=== PATIENT | male | born 1995 | race Caucasian/White ===

== ENCOUNTER 2021-09-02 18:50 | Emergency (ER) | payer OTHER, MEDICAID, SELFPAY ==
[2021-09-02 19:00] VITALS: BP 125/74; PULSE 76; RESP 19; TEMP 36.9; O2SAT 99; BMI 33.2
--- NOTE | 2021-09-02 19:12 | HMH.EDUTC ---
[facility] [place] Disposition Clinical Impression: Bee sting reaction Qualifiers: Encounter type: initial encounter Injury intent: accidental or unintentional Qualified Code(s): T63.441A - Toxic effect of venom of bees, accidental (unintentional), initial encounter Disposition: Home, Self-Care Condition on Discharge: Good Instructions: Insect Bites and Stings, DI for Insect Allergy Additional Instructions: continue benadryl as directed on bottle follow up with pcp may need allergy testing if symptoms worsen or no improvement return or be seen in er Referrals: Horace Anderson PA [Primary Care Provider] - Time of Disposition: 19:35 Medical Decision Making - Devin Inquiry Pt receiving controlled substance: No Vital Signs: 09/02/21 19:00 09/02/21 19:20 Temperature 98.4 F 98.4 F Temperature Source Oral Pulse Rate 76 Pulse Rate [Right Brachial] 76 Respiratory Rate 19 19 Blood Pressure 125/74 Blood Pressure [Right Arm] 125/74 Blood Pressure Mean [Right Arm] 91 Blood Pressure Source [Right Arm] Automatic Cuff Blood Pressure Position [Right Arm] Sitting 02 Sat by Pulse Oximetry 99 Oxygen Delivery Method Room Air Orders (Tests/Meds): ED MEDICATIONS Discontinued Medications Generic Name Dose Route Start Last Admin Trade Name Freq PRN Reason Stop Dose Admin Dexamethasone Sodium Phosphate 8 mg 09/02/21 19:13 09/02/21 19:20 Dexamethasone 4mg/Ml 1ml Vial IM 09/02/21 19:14 8 mg ONCE ONE Administration Famotidine 20 mg 09/02/21 19:13 09/02/21 19:19 Famotidine 20mg Tablet PO 09/02/21 19:14 20 mg ONCE ONE Administration [facility] [place] HPI - General Chief complaint: Urgent Treatment Center Stated complaint: WASP STING r eYE aREA Time Seen by Provider: 09/02/21 19:12 Mode of Arrival: Ambulatory Source of Information: Patient Limitations: No Limitations Description of Symptoms (Recalled from Triage Doc. by RN): PATIENT C/O SWELLING AROUND EYES AFTER A BEE STUNG HIM ON THE FOREHEAD TODAY HEENT Symptoms (Recalled from RN notes): Yes Resp Symptoms (Recalled from RN notes): No Skin Symptoms (Recalled from RN notes): No MS Symptoms (Recalled from RN notes): No Functional Status (Recalled from RN notes): WNL - History of Present Illness Provider Complaint: 26 yr old male presnets for a honey bee sting to forehead at 530pm today, pt states his eyes were swollen shut and he felt his throat being hard to swallow but he took 2 benadryl prior to arrival and this has improved. pt states now only has swelling but can open both eyes. pt states no more throat issues that has gone away - Related Data Allergies Allergy/AdvReac Type Severity Reaction Status Date / Time amoxicillin [From AMOXIL] Allergy Unknown THROAT Verified 09/02/21 19:12 SWELLS codeine [CODEINE] Allergy Unknown THROAT Verified 09/02/21 19:12 SWELLS Sulfa (Sulfonamide Allergy Unknown I-HIVES Verified 09/02/21 19:12 Antibiotics) [SULFA (SULFONAMIDE ANTIBIOTICS)] Penicillins Allergy Verified 09/02/21 19:12 - Worker's Comp Is this a Worker's Comp case?: No [facility] History - Hepatitis A Screen Attestation statement:: This patient has been screened for Hepatitis A risk factors. I have reviewed the patient's past medical history: Yes ROS Obtained: Yes Systems reviewed as appropriate & no additional complaints - Constitutional Constitutional: Reports system reviewed and no additional complaints, except as docu, Denies fever(s) - Eyes Eyes: Reports system reviewed and no additional complaints, except as docu, Denies dry eyes - ENT Ears, Nose, Mouth, and Throat: Reports system reviewed and no additional complaints, except as docu, Denies sore throat - Cardiovascular Cardiovascular: Reports system reviewed and no additional complaints, except as docu, Denies chest pain at rest - Respiratory Respiratory: Reports system reviewed and no additional complaints, except as docu, Denies chest congestion - Dipti
[2021-09-02 19:20] VITALS: BP 125/74; PULSE 76; RESP 19; TEMP 36.9; O2SAT 99
== END 2021-09-02 19:37 | disposition home or self-care (01) ==
PROVIDERS: Emergency Provider Nurse Practitioner Family; PCP Physician Assistant Medical
DX: T63.441A Toxic effect of venom of bees, accidental (unintentional), initial encounter (principal); Z88.0 Allergy status to penicillin; Z88.1 Allergy status to other antibiotic agents; Z88.2 Allergy status to sulfonamides; Z88.3 Allergy status to other anti-infective agents; Z88.5 Allergy status to narcotic agent
CPT/HCPCS: 96372; 99213; G0463

== ENCOUNTER 2022-03-18 16:31 | Emergency (ER) | payer OTHER, MEDICAID, SELFPAY ==
[2022-03-18 17:14] VITALS: BP 144/94; PULSE 104; RESP 18; TEMP 36.5; O2SAT 99; BMI 34.0
[2022-03-18 17:20] LABS: UTC Strep Screen (Rapid) Positive (Negative)
[2022-03-18 17:21] LABS: UTC Influenza A Antigen Negative (Negative); UTC Influenza B Antigen Negative (Negative)
--- NOTE | 2022-03-18 17:37 | EXP.UTC ---
Discharge Plan Disposition Patient Disposition: Home, Self-Care Condition: Good Prescriptions Prescriptions: New azithromycin [Zithromax Z-Wilfred] 250 mg tablet See Rx Instructions .ROUTE .COMPLEX 5 Days Qty: 6 0RF Rx Instructions: For 250 mg dose pack: take 500 mg today (day 1), then 250 mg for 4 days (days 2-5) Referrals Follow up/Referrals: Horace Anderson PA [Primary Care Provider] - See instructions Activity Restrictions/Add. Instructions Additional Instructions/Restrictions: *Monitor Temp, Over the counter Motrin or Tylenol as directed/as needed Tylenol every 4 hours and Motrin every 6 hours (as long as your family doctor has told you that you can take it) for fever or pain. and straight to ER if unable to lower temp less than 101.0 after medication given *Warm salt water gargles may help to soothe the throat *Throat Lozenges? *Warm fluids like tea with honey may help to soothe the throat? *Sleep elevated *Humidifier/Vaporizer *If you did not take Penicillin shot or was unable to, start taking antibiotic immediately and make sure that you take it for the FULL length of time although you should start to feel better in 24-48 hours *change toothbrush and toothpaste 24-48 hours after starting to take antibiotics so you do not reinfect yourself Monitor Temp. Tylenol and/or Ibuprofen as needed. ER if fever is no less than 101 despite alternating Tylenol and Ibuprofen * Encourage fluids, water, Gatorade, powerade, pedialyte if /toddler/or child *Cold fluids, popsicles and ice cream may feel good on his throat Follow up IMMEDIATELY for new or worsening symptoms or no Noticeable improvement over the next 48-72 hours. 911 for difficulty breathing or swallowing Clinical Impressions Clinical Impression: Strep throat Stand Alone Forms Stand Alone Forms: Work/School Release Instructions Patient Instructions: Strep Throat, DI for Strep Throat Discharge ED [place] Cummins [facility] [place] General Stated complaint: earache, sore throat DAS Mode of Arrival: Ambulatory Source of Information: Patient Limitations: No Limitations Time Seen by Provider: 03/18/22 17:37 Description of Symptoms (Recalled from Triage Doc. by RN): pt comes in with c/o sore throat, ear pain, headaches, drainage. symptoms ongoing for 1 week. HEENT Symptoms (Recalled from RN notes): Yes Resp Symptoms (Recalled from RN notes): Yes Skin Symptoms (Recalled from RN notes): No MS Symptoms (Recalled from RN notes): No Functional Status (Recalled from RN notes): n/a History of Present Illness Provider Complaint: Patient states that he hasnt felt well for close to a week States that he has been having sore throat, headache, sinus drainage States today he was still not feeling any better so he came in to get checked Related Data Previous Rx's Medication Instructions Recorded azithromycin 250 mg tablet See Rx Instructions PO .COMPLEX 5 03/18/22 (Zithromax Z-Wilfred) days #6 tabs Allergies Allergy/AdvReac Type Severity Reaction Status Date / Time amoxicillin [From AMOXIL] Allergy Unknown THROAT Verified 03/18/22 17:16 SWELLS codeine [CODEINE] Allergy Unknown THROAT Verified 03/18/22 17:16 SWELLS Sulfa (Sulfonamide Allergy Unknown I-HIVES Verified 03/18/22 17:16 Antibiotics) [SULFA (SULFONAMIDE ANTIBIOTICS)] Penicillins Allergy Verified 03/18/22 17:16 Worker's Comp Is this a Worker's Comp case?: No [facility] Disclaimer: The information contained in this section may have been updated after the patient was seen, as this information can be updated by other users. Social History Smoking Status: Unknown if ever smoked alcohol intake: never current occupational status: employed Travel in the last 8 weeks: None ROS Obtained: Yes All systems reviewed & no additional complaints except as documented and Yes Systems reviewed as appropriate & no additional complaints except as doc
[2022-03-18 17:49] VITALS: BP 144/94; PULSE 104; RESP 18; TEMP 36.5
== END 2022-03-18 17:49 | disposition home or self-care (01) ==
PROVIDERS: Emergency Provider Nurse Practitioner; PCP Physician Assistant Medical
DX: J02.0 Streptococcal pharyngitis (principal)
CPT/HCPCS: 87804; 87880; 99212; G0463